=== PATIENT | female | born 1965 | race Caucasian/White ===

== ENCOUNTER 2016-10-21 10:21 | Emergency (ER) | payer OTHER ==
[2016-10-21] MEDS ORDERED: NS 1,000 ML IV ONE (11:24)
--- NOTE | 2016-10-21 11:36 | EDPHY ---
H & P Stated Complaint: cough & sore throat for 1 wk HPI/ROS: CHIEF COMPLAINT: Cough, sore throat, difficulty swallowing HISTORY OF PRESENT ILLNESS: one-week history of sore throat with difficulty swallowing, cough and congestion. Symptoms have been moderate to severe. Worse when she lays down. Minimal improvement when she is upright. No actual chest pain. No exertional pain. He pain in her chest is with coughing and inspiration only. No fever or chills. Some nausea no vomiting. No abdominal or urinary complaints. No predictable alleviating factors for her. She has been taking her [place] as prescribed for back pain without improvement. No other associated complaints or modifying factors. REVIEW OF SYSTEMS: Ten systems reviewed and are negative unless otherwise noted in the HPI EXAMINATION General Appearance: Alert, no distress , coughing Head: normocephalic, atraumatic Eyes: Pupils equal and round, no conjunctival pallor or injection ENT, Mouth: Mucous membranes moist. There is posterior erythema. There is no edema of the posterior pharynx uvula is midline. No abscess noted. No trismus. Neck: Normal inspection, supple, non-tender Respiratory: Moderate rhonchi without any wheezing, crackles or consolidation. No diminished sounds Cardiovascular: Regular rate and rhythm Gastrointestinal: Abdomen is soft and nontender Back: non-tender, no bony abnormalities Neurological: A&O, nonfocal Skin: Warm and dry, no rash Extremities: Nontender, no pedal edema Psychiatric: Mood and affect normal DIFFERENTIAL DIAGNOSES: Including but not limited to community-acquired pneumonia, influenza, bronchitis, viral illness, strep pharyngitis MDM: multiple complaints of other more consistent with viral etiology given her examination. She does have rhonchi consistent with bronchitis, but I do not appreciate pneumonia on examination. Vital signs are within normal limits. There is no abnormality of the pharynx with an airway that is fully intact. We do have multiple swabs as well as a chest x-ray pending at this time. 1:10 p.m. flu swab was negative, strep test negative, chest x-ray is clear. No evidence of pneumonia by examination either. This is likely a viral bronchitis. Discharged home with steroid therapy, [id number] Mucinex, over-the- counter dextromethorphan follow up with primary care physician. Return to the ER for worsening symptoms any chest pain of any kind. Patient is comfortable with this plan and discharged home in stable condition. SUPERVISION: This patient was independently evaluated without the aide of supervising physician. Source: Patient, Family Exam Limitations: No limitations - Personal History LMP (Females 10-55): Post Menopausal Current Tetanus/Diphtheria Vaccine: Yes Current Tetanus Diphtheria and Acellular Pertussis (TDAP): Yes Tetanus Vaccine Date: 2013 - Medical/Surgical History Hx Asthma: Yes Hx Chronic Respiratory Disease: No Hx Diabetes: No Hx Cardiac Disease: No Hx Renal Disease: No Hx Cirrhosis: No Hx Alcoholism: No Hx HIV/AIDS: No Hx Splenectomy or Spleen Trauma: No Other PMH: hysterectomy/asthma/fx hip /pelvis, blood clots in legs, asthma - Social History Smoking Status: Never smoked Constitutional: Initial Vital Signs Temperature (C) 97.9 F 10/21/16 10:24 Heart Rate 86 10/21/16 10:24 Respiratory Rate 16 10/21/16 10:24 Blood Pressure 119/87 H 10/21/16 10:24 O2 Sat (%) 95 10/21/16 10:24 O2 Delivery Mode Room Air Allergies/Adverse Reactions: morphine Allergy (Verified 01/17/14 12:37) Home Medications: Medication Instructions Recorded Albuterol Dose Unk 04/13/13 "Stomach Med" 07/16/15 Hydrocodone/Acetaminophen [Vicodin 1 each PO 07/16/15 5-300 mg Tablet] Rivaroxaban [Xarelto] 10 mg PO 07/16/15 predniSONE 60 mg PO DAILY #15 tab 10/21/16 Medical Decision Making - Data Points Laboratory Results: 10/21/16 10/21/16 Unknown 11:30 Influenza Typ A,B (DFA) NEGATIVE FOR FLU (NEGATIVE) Group A Strep Screen NEGATIVE (NEGATIVE) Group A Strep DNA Pending Medications Given: Discontinued Medications Sodium Chloride (Ns) 1,000 mls @ 0 mls/hr IV ONCE ONE PRN Reason: Wide Open Stop: 10/21/16 11:25 Last Admin: 10/21/16 11:46 Dose: 1,000 mls Departure - Departure Disposition: Home, Routine, Self-Care Clinical Impression: Acute bronchitis Qualifiers: Bronchitis organism: unspecified organism Qualifier Code: (J20.9) Acute bronchitis, unspecified Pharyngitis Qualifiers: Pharyngitis/tonsillitis etiology: unspecified etiology Qualifier Code: (J02.9) Acute pharyngitis, unspecified Condition: Good Instructions: Acute Bronchitis (ED) Additional Instructions: Follow-up with primary care physician. Return to the ER for worsening symptoms or any chest pain Prescriptions: predniSONE 60 mg PO DAILY #15 tab
--- NOTE | 2016-10-21 12:21 | DX ---
Chest, Two Views at 11:15 hours History: Cough, R05. Comparison: June 2015 Findings: Cardiac silhouette is within normal range. Old right rib fracture. No pneumonia, congestive heart failure, pleural effusion, or pneumothorax. Impression: No focal pneumonia.
[2016-10-21 12:33] VITALS: BP 112/66
[2016-10-21 13:24] VITALS: PULSE 59; RESP 16; TEMP 98.4; O2SAT 95
== END 2016-10-21 13:24 | disposition home or self-care (01) ==
DX: J20.9 Acute bronchitis, unspecified (principal); J02.9 Acute pharyngitis, unspecified; J45.909 Unspecified asthma, uncomplicated

== ENCOUNTER → 2017-05-27 | Outpatient (CLI) | payer OTHER | LOC: FIMAGING 11:50 | PROVIDERS: ATTEND Orthopaedic Surgery | DX: M17.12 Unilateral primary osteoarthritis, left knee (principal) ==

== ENCOUNTER 2017-06-22 10:08 | Observation (INO) | payer OTHER ==
[~2017-06-22 10:08] MED LIST: ROPIVACAINE 0.2% 80 MG, EPINEPHrine 0.2 MG, KETOROLAC TROMETHAMINE 30 MG in BAG 0 ML IU ONE; TRANEXAMIC ACID 3,000 MG in NS 50 ML IRR ONE; TRANEXAMIC ACID 3,000 MG/50 ML BAG IRR ONE; VANCOMYCIN 1 GM VIAL ONE
[2017-06-22] MEDS ORDERED: DEXAMETHASONE 4 MG/ML VIAL IVP ONE (10:24)
[2017-06-22] MEDS ORDERED: FAMOTIDINE 20 MG TAB PO ONE (10:24)
[2017-06-22] MEDS ORDERED: ceFAZolin 2 GM/DEXTROSE 100 ML IV ONE (10:24)
[2017-06-22] MEDS ORDERED: ACETAMINOPHEN 325 MG TAB PO ONE (10:24)
[2017-06-22] MEDS ORDERED: LR 1,000 ML IV ONE (10:39)
[2017-06-22] MEDS ORDERED: LIDOCAINE 1% 2 ML INJ ID PRN (10:39)
[2017-06-22 10:47] VITALS: TEMP 98.4
[2017-06-22] MEDS ORDERED: PROPOFOL/EMULSION 500 MG/50 ML BOTTLE IV ONE ×2 (10:47→12:38)
[2017-06-22] MEDS ORDERED: fentaNYL 100 MCG/2 ML INJ ONE ×3 (10:47→13:22)
--- NOTE | 2017-06-22 11:04 | PDHPUP ---
History & Physical Update H&P update statement: This history and physical update is based on an assessment of the patient which was completed after admission or registration (within 24 hours), but prior to the surgery/procedure. H&P update: H&P reviewed & patient examined, no change in patient's condition since H&P completed
[2017-06-22] MEDS ORDERED: MIDAZOLAM 2 MG/2 ML VIAL ONE (11:39)
[2017-06-22] MEDS ORDERED: MIDAZOLAM 2 MG/2 ML VIAL IVP ONE (11:40)
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
[2017-06-22] MEDS ORDERED: ROPIVACAINE HCL 150 MG/30 ML INJ ONE (11:48)
[2017-06-22] MEDS ORDERED: LIDOCAINE 2% 5 ML SDV ONE (11:48)
[2017-06-22] MEDS ORDERED: PROPOFOL 200 MG/20 ML VIAL ONE (11:50)
[2017-06-22] MEDS ORDERED: PROMETHAZINE HCL 25 MG/ML INJ IVP PRN (12:02)
[2017-06-22] MEDS ORDERED: TEMAZEPAM 15 MG CAP PO PRN (12:02)
[2017-06-22] MEDS ORDERED: ONDANSETRON 4 MG/2 ML VIAL IVP PRN (12:02)
[2017-06-22] MEDS ORDERED: PROMETHAZINE HCL 25 MG SUPPR PR PRN (12:02)
[2017-06-22] MEDS ORDERED: DIPHENOXYLATE/ATROPINE LOMOTIL 1 TAB PO PRN (12:02)
[2017-06-22] MEDS ORDERED: POLYETHYLENE GLYCOL 3350 17 GM PKT PO PRN (12:02)
[2017-06-22] MEDS ORDERED: LACTULOSE 20 GM/30 ML UDCUP PO PRN (12:02)
[2017-06-22] MEDS ORDERED: METOCLOPRAMIDE 10 MG/2 ML VIAL IVP PRN (12:02)
[2017-06-22] MEDS ORDERED: diphenhydrAMINE 25 MG CAP PO PRN (12:02)
[2017-06-22] MEDS ORDERED: CYCLOBENZAPRINE 10 MG TAB PO PRN (12:02)
[2017-06-22] MEDS ORDERED: oxyCODONE IR 5 MG TAB PO PRN (12:02)
[2017-06-22] MEDS ORDERED: BISACODYL 10 MG SUPP PR PRN (12:02)
[2017-06-22] MEDS ORDERED: MAGNESIUM HYDROXIDE 30 ML UDCUP PO PRN (12:02)
[2017-06-22] MEDS ORDERED: ONDANSETRON DISINTEGRATING 4 MG TAB PO PRN (12:02)
[2017-06-22] MEDS ORDERED: ALBUTEROL IH PRN (12:10)
[2017-06-22] MEDS ORDERED: LR 1,000 ML IV SCH (12:30)
[2017-06-22] MEDS ORDERED: ALBUTEROL 200 PUFFS/18 GM MDI IH PRN (12:52)
[2017-06-22] MEDS ORDERED: HYDROCODONE/APAP 5/325 TAB PO PRN (13:01)
[2017-06-22] MEDS ORDERED: LR 500 ML IV PRN (13:01)
[2017-06-22] MEDS ORDERED: NALOXONE HCL 0.4 MG/ML INJ IVP PRN (13:01)
[2017-06-22] MEDS ORDERED: OXYCODONE/APAP 5/325 TAB PO PRN (13:01)
[2017-06-22] MEDS ORDERED: ALBUTEROL 3 ML DEYVIAL IH PRN (13:01)
[2017-06-22] MEDS ORDERED: fentaNYL 100 MCG/2 ML INJ IVP PRN (13:01)
--- NOTE | 2017-06-22 13:12 | POSTOPPROG ---
Post Op Note Date of Operation: 06/22/17 Surgeon: Daniel Sutton Casting [employer] Pasting Supervisor: Martin Hernandez Anesthesiologist: Zohaib Anesthesia: GET(General Endotracheal) Pre-op Diagnosis: L knee DJD Post-op Diagnosis: same Indication: pain Procedure: L med mpl Findings: med OA Inf/Abcess present in the surg proc area at time of surgery?: No EBL: 50-100
[2017-06-22] MEDS ORDERED: HYDROmorphONE/DILAUDID 1 MG/ML INJ ONE (13:17)
[2017-06-22] MEDS: HYDROmorphONE/DILAUDID 1 MG/ML INJ IVP PRN ×2 (13:17→13:28)
--- NOTE | 2017-06-22 13:25 | POSTANESTH ---
Post Anesthetic Evaluation Cardiovascular Status: Normal, Stable Respiratory Status: Normal, Stable Level of Consciousness/Mental Status: Can Participate in Eval Pain Control: Adequate, Prn Tx Ordered Nausea/Vomiting Control: Adequate, Prn Tx Ordered Complications Possibly Related to Anesthesia: None Noted
[2017-06-22] MEDS ORDERED: OXYCODONE/APAP 5/325 TAB ONE (13:48)
[2017-06-22 15:41] VITALS: BP 119/74; PULSE 72; RESP 16; O2SAT 100
--- NOTE | 2017-06-22 16:47 | SOAPPROG ---
SOAP Progress Note Assessment/Plan: Assessment: Patient is doing well day of surgery. Pain management: pain is well controlled on oral pain meds. VTE ppx: recommend resuming her normal dose of xarelto that she is on chronically, cont LETTY and SCDs Anemia: level is expected initially postop. Asymptomatic. Continue to monitor D/c planning: d/c to home today pending release from PT Plan: 06/22/17 16:46 Objective: Vital Signs Temp Pulse Resp BP Pulse Ox 36.9 C 72 16 119/74 100 06/22/17 11:13 06/22/17 15:39 06/22/17 15:39 06/22/17 15:39 06/22/17 15:39 06/21/17 06/22/17 06/23/17 05:59 05:59 05:59 Intake Total 1040 Balance 1040 ICD10 Worksheet Patient Problems: Problems Problem Status Onset Arthritis of knee, left Acute
[2017-06-22] MEDS ORDERED: ceFAZolin 2 GM/DEXTROSE 100 ML IV SCH (18:00)
[2017-06-22] MEDS ORDERED: ACETAMINOPHEN 325 MG TAB PO SCH (18:00)
[2017-06-22] MEDS ORDERED: FAMOTIDINE 20 MG TAB PO SCH (21:00)
[2017-06-22] MEDS ORDERED: SENNOSIDES/DOCUSATE SODIUM TAB PO SCH (21:00)
--- NOTE | 2017-06-23 05:54 | GOP ---
[f rep st] OPERATIVE REPORT DATE OF OPERATION: 06/22/2017 SURGEON: Agatha Sutton MD SHELTER SUPERVISOR: Martin Hernandez. ANESTHESIA: Spinal. PREOPERATIVE DIAGNOSIS: Left knee osteoarthritis. POSTOPERATIVE DIAGNOSIS: Left knee osteoarthritis. PROCEDURE PERFORMED: MAGNUS uni-knee. FINDINGS: INDICATIONS: This is a 51 year old woman with progressive pain of the left knee unresponsive to cons ervative care. Risks and benefits of surgical intervention were explained in detail. DESCRIPTION OF PROCEDURE: The patient was brought to the operating room and placed on the table in s upine position. Spinal anesthesia was induced without difficulty. A pneumatic tourniquet was applie d about the 250 proximal thigh and the leg was prepped and draped in sterile fashion. Attention was turned first to the distal aspect of the left femur. At 3 cm proximal to the lateral rise of the fem ur, 2 percutaneous half pins were placed for fixation of the femoral array. In a similar fashion, 2 pins were placed anterolateral on the tibia for fixation of the tibial array. External land marking and registration of the hip center was performed without difficulty. After exsanguination by elevation, the tourniquet was inflated to 250 mmHg. Incision was made from the tibial tuberosity to the superior pole of the patella. Dissection was car ried out through the subcutaneous tissue to the deep fascia using Bovie electrocautery for hemostasis . Medial parapatellar arthrotomy was carried out to the superior pole of the patella. The medial co llateral ligament was elevated and the infrapatellar fat pad was resected. Internal femoral and tibi al registration was carried out without difficulty and the femoral and tibial checkpoints were placed and verified for accuracy. Attention was turned to the femur. The foot print for the size 3 femoral component was cut with the 6 mm bur using the [employer] robotic system and verified for accuracy against the CT based plan. The hole was cut for the femoral post. In a similar fashion, the 6 mm bur was used to cut the foot print for t he size 3 tibial component using the [employer] system and verified for accuracy against the CT based plan. Attention was turned to the posterior aspect of the knee and remnants of the medial meniscus were exc ised. The posterior capsule was injected with ropivacaine, epinephrine and Toradol. Trial reduction was carried out and there was excellent range of motion, alignment and stability using the size 3 fe moral component and the size 3 tibial component. All trials were then removed. The joint was thoroughly irrigated and carefully dried. One package o f cement and 1 gram of vancomycin were mixed in the vacuum mixer and placed on the fixation surfaces of all components. The components were implanted and all excess cement was thoroughly removed. Impla nt placement was verified against the CT view plan and found to be excellent. The tourniquet was deflated and all bleeders were coagulated. The wound was thoroughly irrigated and closed using interrupted sutures of 2-0 Vicryl for the joint capsule. The subcu was closed with 3-0 Vicryl and the skin with 4-0 Monocryl. Dermabond and Steri-Strips were applied, followed by a compr essive dressing. The patient was then moved from the operating room to the recovery room in good con dition, having tolerated the procedure well. PATHOLOGY: Severe medial compartment osteoarthritis. CASE CLASSIFICATION: Clean. /[id number]/MODL
[2017-06-23] MEDS ORDERED: CETIRIZINE 10 MG TAB PO SCH (09:00)
[2017-06-23] MEDS ORDERED: RIVAROXABAN 10 MG TAB PO SCH (09:00)
--- NOTE | 2017-06-23 16:09 | ASDISCHSUM ---
Discharge Information Plan Status:Home with No Needs Medically Cleared to Leave: Discharge Date:06/22/2017 05:29 PM CM D/C Disposition:Home, Routine, Self-Care ADT D/C Disposition:Home, Routine, Self-Care Projected Discharge Date:06/22/2017 05:29 PM Transportation at D/C: Discharge Delay Reason: Follow-Up Date:06/22/2017 05:29 PM Discharge Slot: Final Diagnosis: Placement Information Patient Contact Information Contact Name:JANETH Relationship:Life Partner Address:[address] [place] [address] Home Phone: City:[facility] Phone: [facility]/Zip Code:[place] [address] Email: Financial Information Financial Class:HMO and PPO Plans Primary Plan Desc:NATALIIA Primary Plan Number:[id number] Secondary Plan Desc: Secondary Plan Number: Assessment Information [facility] CM Progress Note CM Note CM Note Notes: Pt d/c same day of surgery, no CM d/c needs identified. Date Signed: 06/23/2017 04:08 PM Electronically Signed By:STANLEY Kimble Intervention Information
== END 2017-06-22 17:29 | disposition home or self-care (01) ==
LOC: INTOOBSV 10:08 → F3N 10:08
PROVIDERS: ADMIT Orthopaedic Surgery; ATTEND Orthopaedic Surgery
PROC: 0SRD0J9 Replacement of Left Knee Joint with Synthetic Substitute, Cemented, Open Approach (ICD-10-PCS; principal; 2017-06-22 13:15)
DX: M17.10 Unilateral primary osteoarthritis, unspecified knee (principal)
CPT/HCPCS: 97161-GP; C1713; J0171; J0690; J1100; J1170; J1885; J2250; J2704; J2795; J3010; J3370

== ENCOUNTER 2018-10-18 08:47 | Emergency (ER) | payer OTHER ==
--- NOTE | 2018-10-18 09:10 | EDPHY ---
H & P Stated Complaint: cough/august coughing fits post tussive emesis Time Seen by Provider: 10/18/18 09:09 HPI/ROS: CHIEF COMPLAINT: Myalgias, cough, history of asthma HISTORY OF PRESENT ILLNESS: The patient presents the ED with a 1 day history of myalgias, cough, post-tussive emesis and fatigue. The patient does have a history of asthma and has been using her albuterol. She has not been on recent steroids. She has developed posttussive emesis. She describes fairly typical influenza like symptoms of myalgias and arthralgias. The patient denies any recent surgery or travel outside the [place]. She denies any recent antibiotic use. She is currently anticoagulated for lower extremity DVT. REVIEW OF SYSTEMS: A comprehensive 10 point review of systems is otherwise negative aside from elements mentioned in the history of present illness. Source: Patient Exam Limitations: No limitations - Personal History LMP (Females 10-55): Hysterectomy Current Tetanus Diphtheria and Acellular Pertussis (TDAP): Yes Tetanus Vaccine Date: 2013 - Medical/Surgical History Hx Asthma: Yes Hx Chronic Respiratory Disease: No Hx Diabetes: No Hx Cardiac Disease: No Hx Renal Disease: No Hx Cirrhosis: No Hx Alcoholism: No Hx HIV/AIDS: No Hx Splenectomy or Spleen Trauma: No Other PMH: hysterectomy/asthma/fx hip /pelvis, blood clots in legs, asthma - Social History Smoking Status: Never smoked - Physical Exam Exam: General Appearance: Alert, no distress Eyes: Pupils equal and round no pallor or injection ENT, Mouth: Mucous membranes moist Respiratory: Scant expiratory wheezing, no rhonchorous breath sounds appreciated Cardiovascular: Regular rate and rhythm Gastrointestinal: Abdomen is soft and nontender, no masses, bowel sounds normal Neurological: A&O, normal motor function, normal sensory exam, normal cranial nerves Skin: Warm and dry, no rashes Musculoskeletal: Neck is supple nontender, no meningeal symptoms Extremities: symmetrical, full range of motion Constitutional: Initial Vital Signs Temperature (C) 36.5 C 10/18/18 08:53 Heart Rate 70 10/18/18 08:53 Respiratory Rate 18 10/18/18 08:53 Blood Pressure 118/73 10/18/18 08:53 O2 Sat (%) 97 10/18/18 08:53 O2 Delivery Mode Room Air Allergies/Adverse Reactions: morphine Allergy (Verified 10/18/18 08:50) Hives Home Medications: Medication Instructions Recorded Albuterol [Proventil Inhaler HFA 1 - 2 puffs IH DAILY PRN 04/13/13 (*)] Omeprazole [Prilosec 20 mg] 20 mg PO DAILY 07/16/15 Cetirizine [ZyrTEC 10 mg (*)] 10 mg PO DAILY 05/16/17 Doxycycline Hyclate [Vibramycin 100 mg PO DAILY 05/16/17 100 MG (*)] Fluticasone Nasal [Flonase Nasal 1 sprays NASAL BID PRN 05/16/17 [place]] Herbals/Supplements -Info Only 1 each PO DAILY 05/16/17 Multivitamins [Multivitamin (*)] 1 each PO DAILY 05/16/17 Rivaroxaban [Xarelto 10mg (*)] 20 mg PO DAILY 05/16/17 Polyethylene Glycol 3350 [Miralax 17 gm PO DAILY PRN 05/23/17 17 gm (*)] Acetaminophen [Tylenol 325mg (*)] 650 mg PO Q6HRS tab 06/22/17 Ondansetron Odt [Zofran Odt 4 mg 4 mg PO Q4HRS PRN tab 06/22/17 (*)] Sennosides/Docusate Sodium 1 - 2 tab PO BID tab 06/22/17 [Senokot-S] celeCOXIB [Celebrex (*)] 200 mg PO DAILY cap 06/22/17 Ondansetron Odt [Zofran Odt] 4 mg PO Q4PRN PRN #20 tab 10/18/18 Oseltamivir Phosphate [Tamiflu] 75 mg PO BID #10 cap 10/18/18 predniSONE [prednisone 20mg (RX)] 3 tab PO DAILY #15 tab 10/18/18 Medical Decision Making - Diagnostics Imaging Results: Chest x-ray PA lateral: Images reviewed by myself. Impression: Negative for focal infiltrate. ED Course/Re-evaluation: Patient presents to the ED with a influenza like illness in the setting of known asthma. She had scant expiratory wheezing noted on exam. She was taken for a chest x-ray which demonstrates no evidence of an obvious focal pneumonia by my interpretation. The patient was treated with a DuoNeb in the emergency department. She received Zofran ODT. She is nontoxic and well-appearing. There is no clinical evidence of meningitis or significant vital sign abnormality. The patient will be given a course of prednisone in the setting of her asthma and respiratory symptoms. She will also be treated with Tamiflu as she likely has influenza. She will be given a prescription for Zofran. The patient is advised to return to the ED for markedly worsening symptoms or other concerns. Differential Diagnosis: Differential diagnosis considered includes asthma, bronchitis, pneumonia, influenza - Data Points Medications Given: Discontinued Medications Albuterol/Ipratropium (Duoneb) 3 ml IH EDNOW ONE Stop: 10/18/18 09:17 Last Admin: 10/18/18 09:23 Dose: 3 ml Ondansetron HCl (Zofran Odt) 4 mg PO EDNOW ONE Stop: 10/18/18 09:18 Last Admin: 10/18/18 09:23 Dose: 4 mg Departure - Departure Disposition: Home, Routine, Self-Care Clinical Impression: Influenza, Asthma Condition: Good Instructions: Influenza (ED) Additional Instructions: 1. Take Tamiflu as directed for next 5 days for likely influenza. 2. Zofran as prescribed for nausea. 3. Prednisone as directed for next 5 days for your asthma. 4. Continue albuterol 2 puffs every 2-4 hours as needed. 5. Return to the ED for markedly worsening symptoms or other concerns. Referrals: [facility] [Other] - As per Instructions
[2018-10-18] MEDS ORDERED: IPRATROPIUM/ALBUTEROL 3 ML DEYVIAL IH ONE (09:16)
[2018-10-18] MEDS ORDERED: ONDANSETRON DISINTEGRATING 4 MG TAB PO ONE (09:17)
[2018-10-18 10:16] VITALS: BP 96/89
== END 2018-10-18 10:16 | disposition home or self-care (01) ==
DX: J11.1 Influenza due to unidentified influenza virus with other respiratory manifestations (principal); J45.909 Unspecified asthma, uncomplicated; I82.5Z9 Chronic embolism and thrombosis of unspecified deep veins of unspecified distal lower extremity

== ENCOUNTER → 2019-02-12 | Outpatient (CLI) | payer OTHER | LOC: FIMAGING 10:39 | DX: M53.87 Other specified dorsopathies, lumbosacral region (principal); M51.37 Other intervertebral disc degeneration, lumbosacral region; Z98.1 Arthrodesis status ==